=== PATIENT | female | born 1995 | race Native Hawaiian/Other Pacific Islander ===

== ENCOUNTER 2020-11-23 13:54 | Emergency (ER) | payer MEDICAID ==
[2020-11-23 14:05] VITALS: BP 110/79
[2020-11-23] MEDS ORDERED: ACETAMINOPHEN 325 MG TAB PO ONE (15:30)
[2020-11-23] MEDS ORDERED: METOCLOPRAMIDE 10 MG TAB PO ONE (15:30)
[2020-11-23 15:38] LABS: Bacteria,Urine 1+ /HPF (Negative); Bilirubin,Urine NEG (Negative); Blood,Urine MOD (Negative); Color,Urine Straw (Yellow); Protein,Urine <15 mg/dL mg/dL (Negative); RBC,Urine < 1.0 /HPF (0.0-6.0); Urobilinogen,Urine < 2.0 mg/dL (<2.0)
--- NOTE | 2020-11-23 16:26 | Emergency Department Report ---
ED HPI - General Chief complaint: Vaginal Bleeding Stated complaint: 13WKS/PAIN/SPOTTING/CRAMPS Time Seen by Provider: 11/23/20 15:20 Source: patient Mode of arrival: Ambulatory Limitations: No Limitations - History of Present Illness Initial comments: pt is a 25 yo female who presents to the ED with c/o vaginal spotting that began yesterday. she has associated suprapubic abd cramping. she denies any heavy bleeding or passing clots. she states she is approximately 13 weeks . she states her LNMP 08/29/2021. she states she has not yet seen an TUBE ROOM SUPERVISOR she states she just went to the [facility] to confirm her . she states she has intermittent n/v in the morning which she attributes to morning sickness. she denies any fever, dysuria, diarrhea, abnormal vaginal discharge. no pmhx. no allergies to meds. /P:3/A:0 - Related Data Previous Rx's Medication Instructions Recorded Last Taken Type Acetaminophen [Tylenol] 650 mg PO Q8HR PRN #20 capsule 11/23/20 Unknown Rx Metoclopramide [Reglan] 10 mg PO Q8HR PRN #12 tab 11/23/20 Unknown Rx Allergies Allergy/AdvReac Type Severity Reaction Status Date / Time No Known Allergies Allergy Unverified 11/23/20 14:04 ED Review of Systems ROS: Stated complaint: 13WKS/PAIN/SPOTTING/CRAMPS Other details as noted in HPI Comment: All other systems reviewed and negative ED Past Medical Hx - Past Medical History Previous Medical History?: No - Surgical History Past Surgical History?: No - Social History Smoking Status: Never Smoker Substance Use Type: None - Medications Home Medications: Home Medications Medication Instructions Recorded Confirmed Last Taken Type Acetaminophen [Tylenol] 650 mg PO Q8HR PRN #20 capsule 11/23/20 Unknown Rx Metoclopramide [Reglan] 10 mg PO Q8HR PRN #12 tab 11/23/20 Unknown Rx ED Physical Exam - General Limitations: No Limitations General appearance: alert, in no apparent distress - Head Head exam: Present: atraumatic, normocephalic - Eye Eye exam: Present: normal appearance - ENT ENT exam: Present: mucous membranes moist - Respiratory Respiratory exam: Present: normal lung sounds bilaterally. Absent: respiratory distress, wheezes, rales, rhonchi, stridor, chest wall tenderness, accessory muscle use, decreased breath sounds, prolonged expiratory - Cardiovascular Cardiovascular Exam: Present: regular rate, normal rhythm, normal heart sounds. Absent: systolic murmur, diastolic murmur, rubs, gallop - GI/Abdominal GI/Abdominal exam: Present: soft, normal bowel sounds. Absent: distended, tenderness, guarding, rebound, rigid - Neurological Exam Neurological exam: Present: alert, oriented X3 - Psychiatric Psychiatric exam: Present: normal affect, normal mood - Skin Skin exam: Present: warm, dry, intact ED Course Vital Signs 11/23/20 14:04 Temperature 99.0 F Pulse Rate 82 Respiratory 18 Rate Blood Pressure 110/79 O2 Sat by Pulse 99 Oximetry ED Medical Decision Making - Lab Data Result diagrams: 11/23/20 16:35 11/23/20 16:35 Labs 11/23/20 11/23/20 11/23/20 15:31 16:35 16:35 WBC 10.1 RBC 4.27 Hgb 12.6 Hct 37.5 MCV 88 MCH 30 MCHC 34 RDW 12.8 L Plt Count 200 Lymph % (Auto) 24.1 Ashley % (Auto) 5.9 Eos % (Auto) 0.3 Baso % (Auto) 0.4 Lymph # (Auto) 2.4 Ashley # (Auto) 0.6 Eos # (Auto) 0.0 Baso # (Auto) 0.0 Seg Neutrophils % 69.3 Seg Neutrophils # 7.0 Sodium 135 L Potassium 4.3 Chloride 99.6 Carbon Dioxide 23 Anion Gap 17 BUN 8 Creatinine 0.5 L Estimated GFR > 60 BUN/Creatinine Ratio 16 Glucose 77 Calcium 9.9 Total Bilirubin 0.50 AST 17 ALT 12 Alkaline Phosphatase 66 Total Protein 7.4 Albumin 4.4 Albumin/Globulin Ratio 1.5 HCG, Quant Urine Color Straw Urine Turbidity Clear Urine pH 8.0 H Ur Specific [place] 1.004 Urine Protein <15 mg/dl Urine Glucose (UA) Neg Urine Ketones Neg Urine Blood Mod Urine Nitrite Neg Urine Bilirubin Neg Urine Urobilinogen < 2.0 Ur Leukocyte Esterase Neg Urine WBC (Auto) 1.0 Urine RBC (Auto) < 1.0 U Epithel Cells (Auto) < 1.0 Urine Bacteria (Auto) 1+ Blood Type 03/06/21 03/06/21 16:35 16:35 WBC RBC Hgb Hct MCV MCH MCHC RDW Plt Count Lymph % (Auto) Ashley % (Auto) Eos % (Auto) Baso % (Auto) Lymph # (Auto) Ashley # (Auto) Eos # (Auto) Baso # (Auto) Seg Neutrophils % Seg Neutrophils # Sodium Potassium Chloride Carbon Dioxide Anion Gap BUN Creatinine Estimated GFR BUN/Creatinine Ratio Glucose Calcium Total Bilirubin AST ALT Alkaline Phosphatase Total Protein Albumin Albumin/Globulin Ratio HCG, Quant [id number] H Urine Color Urine Turbidity Urine pH Ur Specific [place] Urine Protein Urine Glucose (UA) Urine Ketones Urine Blood Urine Nitrite Urine Bilirubin Urine Urobilinogen Ur Leukocyte Esterase Urine WBC (Auto) Urine RBC (Auto) U Epithel Cells (Auto) Urine Bacteria (Auto) Blood Type O POSITIVE - Radiology Data Radiology results: report reviewed Ordering Physician: KIMBERLYN OGDEN Date of Service: 11/23/20 Procedure(s): US OB <= 14 weeks fetus Accession Number(s): [id number] cc: KIMBERLYN OGDEN ULTRASOUND OBSTETRIC INDICATION: 12 weeks with abdominal pain and vaginal bleeding. TECHNIQUE: Transabdominal. COMPARISON: None available. FINDINGS: GESTATIONAL SAC: Well-defined oval shape and intrauterine in location. YOLK SAC: No significant abnormality. EMBRYO/FETUS: No significant abnormality. - [place]-Rump Length = 6.3 cm = 12 weeks, 5 day(s). - Heart Rate = 168 beats per minute. ADNEXA: No significant abnormality. FREE FLUID: None. ADDITIONAL FINDINGS: None. IMPRESSION: 1. Single, living intrauterine with estimated sonographic age of 12 weeks, 5 day(s). 2. No acute abnormality. Signer Name: Murali Acosta MD Signed: 11/23/2020 4:20 PM Workstation Name: [id number] Transcribed By: LAY Dictated By: Murali Acosta MD Electronically Authenticated By: Murali Acosta MD Signed Date/Time: 11/23/20 162 DD/ 1618 TD/TT: - Medical Decision Making pt is a 25 yo female who presents to the ED with c/o vaginal spotting that began yesterday. she has associated suprapubic abd cramping. she denies any heavy bleeding or passing clots. she states she is approximately 13 weeks . she states her LNMP 08/29/2021. she states she has not yet seen an TUBE ROOM SUPERVISOR she states she just went to the [facility] to confirm her . she states she has intermittent n/v in the morning which she attributes to morning sickness. she denies any fever, dysuria, diarrhea, abnormal vaginal discharge. no pmhx. no allergies to meds. /P:3/A:0. vitals are normal. No abdominal tenderness on exam, no guarding, no rebound, no rigidity, normal bowel sounds, no ecchymosis. Labs are stable. hCG quant is [id number]. There is no blood present in the urine, no signs of UTI. H&H is normal. Patient is O+. OB ultrasound 1. Single, living intrauterine with estimated sonographic age of 12 weeks, 5 day(s). 2. No acute abnormality. Discussed results with patient. Advised patient please take medication as prescribed as needed. increase your water intake. practice pelvic rest. take a vitamin over the counter. follow up with an customer technical services manager. you need to have a repeat hcg quant in 2 days. return to the emergency room for any new or worsening symptoms. Critical care attestation.: If time is entered above; I have spent that time in minutes in the direct care of this critically ill patient, excluding procedure time. ED Disposition Clinical Impression: Threatened in second trimester Disposition: DC-01 TO HOME OR SELFCARE Is pt being admited?: No Does the pt Need Aspirin: No Condition: Stable Instructions: Threatened Miscarriage Additional Instructions: please take medication as prescribed as needed. increase your water intake. practice pelvic rest. take a vitamin over the counter. follow up with an customer technical services manager. you need to have a repeat hcg quant in 2 days. return to the emergency room for any new or worsening symptoms. Prescriptions: Metoclopramide [Reglan] 10 mg PO Q8HR PRN #12 tab PRN Reason: nausea vomiting Acetaminophen [Tylenol] 650 mg PO Q8HR PRN #20 capsule PRN Reason: pain Referrals: PRIMARY CARE, [Primary Care Provider] - 2-3 Days [facility] [Provider Group] - 2-3 Days [facility] [Provider Group] - 2-3 Days [facility] [Provider Group] - 2-3 Days Time of Disposition: 17:50 Print Language: ARABIC
[2020-11-23 16:58] LABS: Basophils % (Auto) 0.4 % (0.0-1.8); Eosinophils % (Auto) 0.3 % (0.0-4.3); Hematocrit 37.5 % (30.3-42.9); Hemoglobin 12.6 gm/dl (10.1-14.3); Lymphocytes # (Auto) 2.4 K/mm3 (1.2-5.4); Lymphocytes % (Auto) 24.1 % (13.4-35.0); Mean Corpuscular HGB Conc 34 % (30-34); Mean Corpuscular Volume 88 fl (79-97); Monocytes # (Auto) 0.6 K/mm3 (0.0-0.8); Monocytes % (Auto) 5.9 % (0.0-7.3); Platelet Count 200 K/mm3 (140-440); Red Blood Count 4.27 M/mm3 (3.65-5.03); Red Cell Distribution Width 12.8 % (13.2-15.2)
[2020-11-23 17:12] LABS: Alanine Aminotransferase 12 units/L (7-56); Albumin 4.4 g/dL (3.9-5); Blood Urea Nitrogen 8 mg/dL (7-17); Calcium 9.9 mg/dL (8.4-10.2); Hemolysis Index 4
[2020-11-23 17:16] LABS: BUN/Creatinine Ratio 16
== END 2020-11-23 17:57 | disposition home or self-care (01) ==
LOC: MERGE 13:54 → ED 13:54
DX: O20.0 Threatened abortion (principal); Z3A.13 13 weeks gestation of pregnancy; Z79.899 Other long term (current) drug therapy
CPT/HCPCS: 36415; 76801; 80053; 81001; 84702; 85025; 86900; 86901